=== PATIENT | female | born 1980 | race Two or more races ===

== ENCOUNTER 2017-04-05 14:28 | Emergency (ER) | payer OTHER ==
--- NOTE | ~2017-04-05 | CT71 ---
[facility] A Service of [facility] RADIOLOGY TEXT RESULTS PATIENT: GARCÍA DE LUNA LOCATION: [facility] : 82 UNIT #: [id number] AGE: [address]: Jose Martin Landry MD SEX: F ORDER DR: [id number] [facility] [address] [place], [place] [address] [id number] E MR#: [id number] Acc #: [id number] NAME: GARCÍA DE LUNA : 1980 SEX: F STUDY DATE/TIME: 04/05/2017 16:33 UNIT: [facility] ROOM: STUDY DESCRIPTION: CT Head Wo Contrast Attending Physician: Jose Martin Landry M.D. Ordering Physician: Sarah Macedo M.D. Primary Care Physician: Quan Ng M.D. MEDICAL IMAGING REPORT This report is preliminary unless electronic signature is present EXAM CT head, noncontrast, 04/05/2017 HISTORY 36-year-old female in the ED complaining of 2-day history of severe headache (/) and dizziness. TECHNIQUE CT examination of the head was performed without IV contrast. This CT exam was performed with one or more of the following radiation dose reduction techniques: automatic control, adjustment of mA and/or kV according to patient size, and iterative reconstruction. FINDINGS The examination is negative. No evidence of intracranial hemorrhage, mass, mass effect, cerebral edema or hydrocephalus. Note is made of mild mucosal thickening within the visualized ethmoid sinuses. IMPRESSION Negative head CT examination. Dictated by... Prakash Falk M.D. THIS IS AN ELECTRONICALLY VERIFIED REPORT Prakash Falk M.D. at 04/06/2017 12:52 PM YONATHANW/sameer TD: 04/06/2017 02:27 JOB #: [id number] MEDICAL IMAGING REPORT Page 1 of 1 COPY
[2017-04-05 15:48] LABS: URINE SOURCE CLEAN CATCH
[2017-04-05 15:51] LABS: BASOPHIL# 0.1 X10e3 (0-0.3); EOSINOPHIL# 1.3 X10e3 (0-0.7); HEMATOCRIT 45.4 % (35.0-45.0); HEMOGLOBIN 15.3 gm/dL (12.0-16.0); LYMPHOCYTE# 2.9 X10e3 (1.0-3.5); LYMPHOCYTE% 34.9 % (17.0-45.0); MEAN CELL VOLUME 93.4 FL (83-96); MEAN CORPUSCULAR HEMOGLOBIN 31.4 PG (28-34); MEAN CORPUSCULAR HGB CONC 33.6 g/dL (30-36); MONOCYTE# 0.6 X10e3 (0-1.0); MONOCYTE% 6.9 % (3.0-12.0); NEUTROPHIL# 3.4 X10e3 (1.5-7.1); NEUTROPHIL% 41.2 % (40-75); PLATELET COUNT 243 X10e3 (140-420); RED BLOOD COUNT 4.86 X10e (3.90-5.30); WHITE BLOOD COUNT 8.4 X10e3 (4.0-10.5)
[2017-04-05 15:52] LABS: URINE APPEARANCE CLEAR; URINE BILIRUBIN NEG (NEG); URINE BLOOD TRACE (NEG); URINE COLOR YELLOW; URINE GLUCOSE NEG (NEG); URINE KETONE NEG (NEG); URINE LEUKOCYTE ESTERASE NEG (NEG); URINE NITRATE NEG (NEG); URINE PROTEIN NEG (NEG); URINE SPECIFIC GRAVITY 1.006 (1.003-1.035); URINE UROBILINOGEN 0.2 MG/DL (NEG)
[2017-04-05 15:53] LABS: DIFF IND NO
[2017-04-05 15:55] LABS: U HYALINE CASTS AUWI 0-2 /[LPF]; URBCS1 AUWI 0-2 /[HPF] (0-2); URINE BACTERIA AUWI NEG (NEGATIVE); URINE SQUAMOUS EPITHELIAL CELL NONE SEEN /[HPF]; UWBCS1 AUWI 0-2 (0-5)
[2017-04-05 15:58] LABS: CULTURE INDICATED? NO
[2017-04-05 16:03] LABS: AMPHETAMINE NEG (NEG); BARBITURATES NEG (NEG); BENZODIAZEPINES NEG (NEG); COCAINE NEG (NEG); MARIJUANA NEG (NEG); OPIATES NEG (NEG); TRICYCLIC ANTIDEPRESSANTS NEG (NEG); U METHADONE NEG (NEG)
[2017-04-05 16:25] LABS: ALBUMIN SERUM 4.3 g/dL (3.5-5.0); BILIRUBIN, DIRECT 0.2 mg/dL (0.0-0.2); BILIRUBIN,INDIRECT 1.8 mg/dL (0.0-0.9); CREATININE SERUM 0.4 mg/dL (0.6-1.4); POTASSIUM 3.4 mmol/L (3.5-5.1); PROTEIN TOTAL SERUM 8.4 g/dL (6.0-8.3)
== END 2017-04-05 17:40 | disposition home or self-care (01) ==
LOC: CED 14:28
PROVIDERS: Student in an Organized Health Care Education/Training Program
DX: R51 Headache (principal); M54.5 Low back pain; Z88.8 Allergy status to other drugs, medicaments and biological substances
CPT/HCPCS: 36415; 70450; 80048; 80076; 80307; 81003; 84703; 85025; 96361; 96374; 96375; 99284; J1200; J1885; J2405